=== PATIENT | female | born 1980 | race American Indian/Alaskan Native ===

== ENCOUNTER 2016-07-17 17:06 | Emergency (ER) | payer MEDICAID ==
[2016-07-17 18:01] LABS: Basophils % (Auto) 0.5 % (0.0-1.8); Eosinophils % (Auto) 1.2 % (0.0-4.3); Hematocrit 36.7 % (30.3-42.9); Hemoglobin 12.4 gm/dl (10.1-14.3); Mean Corpuscular HGB Conc 34 % (30-34); Mean Corpuscular Hemoglobin 28 pg (28-32); Mean Corpuscular Volume 82 fl (79-97); Platelet Count 426 K/mm3 (140-440); Red Blood Count 4.49 M/mm3 (3.65-5.03); Red Cell Distribution Width 14.1 % (13.2-15.2); White Blood Count 9.1 K/mm3 (4.5-11.0)
[2016-07-17 18:15] LABS: Alanine Aminotransferase 16 units/L (7-56); Albumin 4.2 g/dL (3.9-5); Albumin/Globulin Ratio 1.2 %; Alkaline Phosphatase 83 units/L (35-129); Anion Gap 19 mmol/L; Blood Urea Nitrogen 7 mg/dL (7-17); Calcium 9.1 mg/dL (8.4-10.2); Carbon Dioxide 24 mmol/L (22-30); Chloride 100.3 mmol/L (98-107); Glucose 92 mg/dL (65-100); Lipase 20 units/L (13-60); Potassium 4.4 mmol/L (3.6-5.0); Sodium 139 mmol/L (137-145); Total Protein 7.8 g/dL (6.3-8.2)
[2016-07-17 19:11] LABS: Bilirubin,Urine NEG (Negative); Blood,Urine NEG (Negative); Ketones,Urine NEG (Negative); Leukocyte Esterase,Urine NEG (Negative); Mucus,Urine FEW /HPF; Nitrite,Urine NEG (Negative); Protein,Urine <15 mg/dL mg/dL (Negative); Urobilinogen,Urine < 2.0 mg/dL (<2.0)
[2016-07-18 00:35] VITALS: BP 157/88
--- NOTE | 2016-07-18 01:39 | Emergency Department Report ---
ED Abdominal Pain HPI - General Chief Complaint: Urogenital-Female Stated Complaint: POSS UTI Time Seen by Provider: 07/18/16 01:01 Source: patient Mode of arrival: Ambulatory Limitations: No Limitations - History of Present Illness Initial Comments: Patient comes into the ER today with complaints of right flank pain as well as difficulty urinating. Patient states that she has had the pain for several weeks. Patient states that she has been on multiple antibiotics including Cipro , Bactrim, amoxicillin for urinary tract infection and people keep telling her that it is not going away. Patient states that she saw a urologist for the first time today and he wanted to get a CT scan to evaluate her symptoms and that he recommended she come to the ER so that she can get the CT scan today. Patient states that the urologist told her she had blood in her urine earlier today. MD Complaint: flank pain Location: R flank Severity scale (0 -10): 7 Treatments Prior to Arrival: other (doctor's visit) - Related Data Previous Rx's Medication Instructions Recorded Last Taken Type Nitrofurantoin [place]/M-Cryst 100 mg PO Q12HR #60 capsule 07/18/16 Unknown Rx [Macrobid CAP] traMADol [Ultram] 50 mg PO Q4HR PRN #30 tablet 07/18/16 Unknown Rx Allergies Allergy/AdvReac Type Severity Reaction Status Date / Time ciprofloxacin [From Cipro] Allergy Unknown Verified 07/17/16 17:28 ciprofloxacin HCl Allergy Unknown Verified 07/17/16 17:28 [From Cipro] codeine Allergy Unknown Verified 07/17/16 17:28 Sulfa (Sulfonamide Allergy Unknown Verified 07/17/16 17:28 Antibiotics) ED Review of Systems ROS: Stated complaint: POSS UTI Other details as noted in HPI Constitutional: denies: chills, fever Eyes: denies: eye pain, eye discharge, vision change ENT: denies: ear pain, throat pain Respiratory: denies: cough, shortness of breath, wheezing Cardiovascular: denies: chest pain, palpitations Endocrine: no symptoms reported Gastrointestinal: abdominal pain (right flank and right side of abdomen). denies: nausea, diarrhea Genitourinary: other (difficulty urinating). denies: urgency, dysuria, discharge Musculoskeletal: denies: back pain, joint swelling, arthralgia Skin: denies: rash, lesions Neurological: denies: headache, weakness, paresthesias Psychiatric: denies: anxiety, depression Hematological/Lymphatic: denies: easy bleeding, easy bruising ED Past Medical Hx - Past Medical History Hx Psychiatric Treatment: Yes (anxiety) Hx Asthma: Yes Additional medical history: kidney stones - Surgical History Additional Surgical History: hand - Social History Smoking Status: Former Smoker Substance Use Type: None - Medications Home Medications: Home Medications Medication Instructions Recorded Confirmed Last Taken Type Nitrofurantoin [place]/M-Cryst 100 mg PO Q12HR #60 capsule 07/18/16 Unknown Rx [Macrobid CAP] traMADol [Ultram] 50 mg PO Q4HR PRN #30 tablet 07/18/16 Unknown Rx ED Physical Exam - General Limitations: No Limitations General appearance: alert, in no apparent distress, obese - Head Head exam: Present: atraumatic, normocephalic - Eye Eye exam: Present: normal appearance - ENT ENT exam: Present: mucous membranes moist - Neck Neck exam: Present: normal inspection - Respiratory Respiratory exam: Present: normal lung sounds bilaterally. Absent: respiratory distress - Cardiovascular Cardiovascular Exam: Present: regular rate, normal rhythm. Absent: systolic murmur, diastolic murmur, rubs, gallop - GI/Abdominal GI/Abdominal exam: Present: soft, tenderness (right lower back/flank), normal bowel sounds. Absent: distended, guarding, rebound, rigid - Rectal Rectal exam: Present: deferred - Extremities Exam Extremities exam: Present: normal inspection - Back Exam Back exam: Present: normal inspection, tenderness (tenderness noted to right lower lumbar sacral region). Absent: muscle spasm, paraspinal tenderness, vertebral tenderness - Neurological Exam Neurological exam: Present: alert, oriented X3, normal gait - Psychiatric Psychiatric exam: Present: normal affect, normal mood - Skin Skin exam: Present: warm, dry, intact, normal color. Absent: rash ED Course Vital Signs 07/17/16 07/18/16 17:22 00:35 Temperature 97.1 F L Pulse Rate 86 85 Respiratory 18 20 Rate Blood Pressure 138/86 Blood Pressure 157/88 [Right] O2 Sat by Pulse 96 98 Oximetry ED Medical Decision Making - Lab Data Result diagrams: 07/17/16 17:47 07/17/16 17:47 Laboratory results reviewed and discussed with patient room. Kidney function unremarkable as well as normal white count. - Radiology Data Radiology results: report reviewed Scattered diverticula within the GI tract. No kidney stones noted. Liver, spleen, gallbladder, pancreas, adrenals, kidneys all within normal limits. - Medical Decision Making Patient is nontoxic and hemodynamically stable. CT and lab results reviewed and discussed the patient room. I have some concern for potential interstitial cystitis based on patient's history and recurrent urinary tract infections. I' ll start patient on Macrobid for suspicion of such and she is to follow back up with her urologist for anticipated cystoscopy in the next 2-3 weeks. Patient is stable for discharge and is agreement with treatment plan. Critical care attestation.: If time is entered above; I have spent that time in minutes in the direct care of this critically ill patient, excluding procedure time. ED Disposition Clinical Impression: Right flank pain, Urinary problem Disposition: DISCHARGED TO HOME OR SELFCARE Is pt being admited?: No Does the pt Need Aspirin: No Condition: Stable Instructions: Urinary Tract Infection in Women (ED) Prescriptions: Nitrofurantoin [place]/M-Cryst [Macrobid CAP] 100 mg PO Q12HR #60 capsule traMADol [Ultram] 50 mg PO Q4HR PRN #30 tablet PRN Reason: Pain Referrals: PRIMARY CARE, [Primary Care Provider] - 3-5 Days Time of Disposition: 03:40
--- NOTE | 2016-07-18 02:54 | Cat Scan Report ---
FINAL REPORT PROCEDURE: CT ABDOMEN PELVIS WO CON TECHNIQUE: Computerized axial tomography of the abdomen and pelvis was performed without intravenous contrast. This study is performed without intravascular contrast material and its sensitivity for abdominal and pelvic pathology, including neoplasms, inflammation, abscess, free fluid, thrombosis, arterial dissection and infarction, is reduced compared with a contrast enhanced study. HISTORY: right flank pain COMPARISON: No prior studies are available for comparison. FINDINGS: Visualized lower thorax: No significant abnormality. Liver: Normal size and attenuation. Spleen: Normal size and attenuation. Gallbladder and biliary system: Normal. Pancreas: Normal. Adrenals: Normal. Kidneys: There are no kidney stones. There is no hydronephrosis.. GI tract: There is no bowel obstruction. There is moderate stool in the colon. There is scattered diverticula. The appendix is not identified.. Lymph nodes and mesentery: There is mild mesenteric induration and adenopathy which is nonspecific but could be evidence of mesenteric panniculitis or mesenteric adenitis.. Vasculature: Normal. Bladder: Normal. Reproductive organs: The uterus and ovaries are unremarkable.. Peritoneum: There is no ascites, free air, abscess or adenopathy.. Musculoskeletal structures: No significant abnormality. Other: None. IMPRESSION: There are no kidney stones. There is no hydronephrosis.. There is no bowel obstruction. There is moderate stool in the colon. There is scattered diverticula. The appendix is not identified.. There is mild mesenteric induration and adenopathy which is nonspecific but could be evidence of mesenteric panniculitis or mesenteric adenitis.. The uterus and ovaries are unremarkable.. There is no ascites, free air, abscess or adenopathy.. .
== END 2016-07-18 03:50 | disposition home or self-care (01) ==
LOC: ED 17:06
DX: R10.9 Unspecified abdominal pain (principal); R30.9 Painful micturition, unspecified; J45.909 Unspecified asthma, uncomplicated; F41.9 Anxiety disorder, unspecified; Z87.891 Personal history of nicotine dependence; Z88.2 Allergy status to sulfonamides; Z88.1 Allergy status to other antibiotic agents; Z88.5 Allergy status to narcotic agent
CPT/HCPCS: 36415; 74176; 80053; 81001; 81025; 83690; 85025

== ENCOUNTER 2018-05-25 09:20 | Outpatient (CLI) | payer OTHER ==
[2018-05-25] MEDS ORDERED: PROVENTIL IH ONE ×2 (10:03→10:07)
== END 2018-05-25 09:21 | disposition home or self-care (01) ==
LOC: PF 09:20
PROVIDERS: ATTEND Internal Medicine
DX: Z02.71 Encounter for disability determination (principal); J45.909 Unspecified asthma, uncomplicated; R03.0 Elevated blood-pressure reading, without diagnosis of hypertension; Z87.891 Personal history of nicotine dependence
CPT/HCPCS: 94060; 94640